=== PATIENT | female | born 1975 | race Caucasian/White ===

== ENCOUNTER → 2016-06-12 | Outpatient (CLI) | payer MEDICAID ==
[~2016-06-12] MED LIST: ADVIL 200MG TA200 MG PO; ADVIL200 MG OR; AMOXIL500 M1 PO; CIPRO 500MG TA500 MG PO; DARVOCET-N 1001 EACH PO; FLEXERIL10 M1 PO; HYDROCODONE-APA1 TA1 PO; LORTAB 5/500 501 TAB PO; MOTRIN600 MG PO; MULTI VITAMINS1 TAB PO; NAPROSYN 500MG500 MG PO; NEURONTIN 300M300 MG PO; PERCOCET 650 MG1 TAB PO; ROBAXIN-750750 MG PO; SUBOXONE 8 MG-21 TAB PO; SUBOXONE 8 MG-21 TAB SL; VISTARIL25 MG PO; ZOFRAN4 MG PO; ZZZQUIL25 MG PO
[2016-06-12 19:22] LABS: FREE THYROXIN INDEX 6.2 ug/dl (5.93-13.13)
== END ==
LOC: LAB 18:21
PROVIDERS: Surgery
DX: E04.9 Nontoxic goiter, unspecified (principal); F17.200 Nicotine dependence, unspecified, uncomplicated